=== PATIENT | female | born 1950 | race Caucasian/White ===

== ENCOUNTER 2016-11-27 11:20 | Emergency (ER) | payer MEDICARE, OTHER, MEDICAID ==
[~2016-11-27 11:20] MED LIST: ACETAMINOPHEN1 EAC4 PO; ACETAMINOPHEN325 M2 PO; ADVAIR 25028 BLISTER INH; ALAWAY10 M1 OP; ALBUTEROL17 GM; ALDACTONE25 M1 PO; ASPIR 8181 M1 PO; ASTELIN137 MCG; ATIVAN0.5 M1 PO; ATIVAN1 M2 PO; ATIVAN1 MG PO; AZELASTINE137 MCG/01 NS; BENADRYL25 MG; BUSPIRONE HCL10 M2 PO; CALCITRATE + V1 EAC1 PO; CLONAZEPAM1 MG PO; CLONAZEPAM2 MG; COZAAR50 MG; CYMBALTA30 M1 PO; CYMBALTA60 MG; CYMBALTA60 MG PO; DARVON65 M1 PO; GLUCOPHAGE1000 MG PO; GLUCOPHAGE850 MG PO; INVEGA; KLONOPIN2 M1 PO; LOPERAMIDE2 MG; LORAZEPAM1 M1 PO; METFORMIN HCL500 M2 PO; METFORMIN HCL850 MG; METOPROLOL TART25 M1 PO; METOPROLOL TART25 MG PO; MIRAPEX0.25 MG PO; MUCINEX D ER T1 EAC2 PO; NON-DROWSY ALLE10 MG PO; NORCO 5-325 TA1 EACH PO; OMEPRAZOLE20 M4 PO; PRAVACHOL40 MG PO; PREMARIN1.25 MG; PROAIR; PROAIR HFA8.5 GM IH; PROMETHAZINE HC25 M3 PO; SEROQUEL100 M2 PO; SEROQUEL25 MG; SEROQUEL50 MG; SINGULAIR10 M1 PO; SINGULAIR10 MG; SINGULAIR10 MG PO; SOMA350 M1 PO; SPIRONOLACTONE25 MG; SPIRONOLACTONE25 MG PO; SYNTHROID137 MCG; SYNTHROID88 MCG PO; TOPROL XL25 M1 PO; TRAZODONE HCL100 M1 PO; TRAZODONE HCL150 MG; TRAZODONE100 MG PO; TYLENOL PM EX-S1 TAB; VITAMIN D-32000 UNI3 PO; VITAMIN D32000 UNI3 PO; ZYRTEC1010 PO; [UNRECOGNIZED DRUG - OTHER]; [UNRECOGNIZED DRUG - OTHER]; [UNRECOGNIZED DRUG - OTHER]; [UNRECOGNIZED DRUG - OTHER] PO
[2016-11-27 11:56] LABS: URINE BILIRUBIN NEGATIVE (NEG); URINE BLOOD SMALL (NEG); URINE GLUCOSE (UA) NEGATIVE (NEG); URINE KETONE NEGATIVE (NEG); URINE LEUKOCYTE ESTERASE POSITIVE (NEG); URINE NITRITE NEGATIVE (NEG); URINE PROTEIN NEGATIVE (NEG)
[2016-11-27 11:58] LABS: URINE APPEARANCE CLEAR; URINE COLOR YELLOW
[2016-11-27 12:04] LABS: URINE WBC 0-1 /[HPF] (0-5)
[2016-11-27 12:05] LABS: URINE RBC 0-1 /[HPF] (0-5)
[2016-11-27 12:09] LABS: BASO % 0.3 % (0-2); EOS % 2.4 % (0-7); EOSINOPHIL ABSOLUTE COUNT 0.2 tho/cmm (0.0-0.7); HGB-HEMOGLOBIN 12.3 gm/dl (12.0-15.5); IMMATURE GRANULOCYTES ABSOLUTE 0.02 tho/cmm (0-0.03); IMMATURE GRANULOCYTES PERCENT 0.3 % (0-0.3); LYMPH % 27.3 % (20-45); MCHC MEAN CORPUSCULAR HGB CONC 32.4 % (32.0-36.0); MCV (MEAN CELL VOLUME) 92.7 fl (82.0-96.0); MEAN PLATELET VOLUME 9.1 cmc (9.4-12.4); MONO % 8.3 % (0-12); MONOCYTE ABSOLUTE COUNT 0.6 tho/cmm (0.0-1.2); NEUTROPHIL ABSOLUTE COUNT 4.5 tho/cmm (1.6-8.0); NEUTROPHIL-AUTOMATED 4.5 tho/cmm (1.6-8.0); NEUTROPHILS % 61.4 % (40-80); PLATELET COUNT 275 tho/cmm (150-450); RED CELL DISTRIBUTION WIDTH 12.7 % (12.4-16.4); WHITE BLOOD COUNT 7.4 tho/cmm (4.0-10.0)
[2016-11-27 12:37] LABS: ALB/GLOB RATIO 1.1 (0.8-2.0); ALBUMIN 3.8 g/dl (3.5-5.0); ALKALINE PHOSPHATASE 74 U/L (33-138); ALT/SGPT 22 U/L (12-78); ANION GAP 14 mmol/L (0-20); AST/SGOT 26 U/L (10-40); BILIRUBIN,TOTAL 0.4 mg/dl (0-1.5); BLOOD UREA NITROGEN 11 mg/dl (6-24); C-REACTIVE PROTEIN 0.4 mg/dl (0-0.9); CALCIUM 9.2 mg/dl (8.5-10.5); CARBON DIOXIDE-VENOUS 26 mmol/L (22-32); CHLORIDE 102 mmol/l (96-110); CREATININE 0.84 mg/dl (0.50-1.10); GLUCOSE 110 mg/dL (70-110); LIPASE 100 U/L (73-393); POTASSIUM 3.9 mmol/L (3.7-5.1); SODIUM 138 mmol/L (135-145); eGFR VALUE FOR BLACK 83 mL/Min
[2016-11-27] MEDS ORDERED: ADVAIR 100-501 EACH INH (13:34)
[2016-11-27] MEDS ORDERED: KLONOPIN2 M1 PO ×2 (13:34)
[2016-11-27] MEDS ORDERED: CYMBALTA30 M1 PO (13:37)
[2016-11-27] MEDS ORDERED: ATIVAN1 M2 PO (13:39)
[2016-11-27] MEDS ORDERED: GLUCOPHAGE1000 M1 PO (13:39)
[2016-11-27] MEDS ORDERED: OMEPRAZOLE40 M2 PO (13:39)
[2016-11-27] MEDS ORDERED: ALAWAY10 M1 EACH EYE (13:40)
[2016-11-27] MEDS ORDERED: AZELASTINE137 MCG/01 (13:41)
[2016-11-27] MEDS ORDERED: NORCO 5-325 TA1 EACH PO ×2 (13:43→14:59)
[2016-11-27] MEDS ORDERED: ZYRTEC1010 PO (13:44)
[2016-11-27] MEDS ORDERED: ALDACTONE25 M1 PO (13:46)
[2016-11-27] MEDS ORDERED: METOPROLOL TART25 M1 PO (13:46)
[2016-11-27] MEDS ORDERED: SYNTHROID75 MC1 PO (13:47)
[2016-11-27] MEDS ORDERED: TRAZODONE HCL100 M1 PO (13:47)
[2016-11-27] MEDS ORDERED: CYCLOBENZAPRINE10 M1 PO (13:54)
[2016-11-27] MEDS ORDERED: ATORVASTATIN CA20 M1 PO (13:56)
[2016-11-27] MEDS ORDERED: SINGULAIR10 M1 PO (13:57)
[2016-11-27] MEDS ORDERED: TYLENOL EXTRA500 M1 PO (14:13)
[2016-11-27] MEDS ORDERED: CYMBALTA60 M1 PO (14:13)
== END 2016-11-27 15:12 ==
LOC: EDMED 11:20
PROVIDERS: Emergency Medicine
DX: R10.30 Lower abdominal pain, unspecified (principal); M54.31 Sciatica, right side; E11.9 Type 2 diabetes mellitus without complications; I10 Essential (primary) hypertension; F41.9 Anxiety disorder, unspecified; F43.10 Post-traumatic stress disorder, unspecified; F32.9 Major depressive disorder, single episode, unspecified; J45.909 Unspecified asthma, uncomplicated; Z79.51 Long term (current) use of inhaled steroids; Z79.899 Other long term (current) drug therapy
CPT/HCPCS: J1885; J7030

== ENCOUNTER 2017-02-22 07:12 | Emergency (ER) | payer MEDICARE, OTHER, MEDICAID ==
[~2017-02-22 07:12] MED LIST changes: +ADVAIR 100-501 EACH INH; +ALAWAY10 M1 EACH EYE; +ATORVASTATIN CA20 M1 PO; +AZELASTINE137 MCG/01; +CYCLOBENZAPRINE10 M1 PO; +CYMBALTA60 M1 PO; +GLUCOPHAGE1000 M1 PO; +OMEPRAZOLE40 M2 PO; +SYNTHROID75 MC1 PO; +TYLENOL EXTRA500 M1 PO
[2017-02-22] MEDS ORDERED: NORCO 5-325 TA1 EACH PO (07:38)
== END 2017-02-22 07:50 ==
LOC: EDMED 07:12
DX: M54.16 Radiculopathy, lumbar region (principal); E11.9 Type 2 diabetes mellitus without complications; I10 Essential (primary) hypertension; J45.909 Unspecified asthma, uncomplicated; Z90.710 Acquired absence of both cervix and uterus
CPT/HCPCS: J1885